=== PATIENT | male | born 1975 | race Hispanic/Latino ===

== ENCOUNTER 2019-05-09 09:20 | Observation (INO) | payer SELFPAY ==
[2019-05-09] VITALS: BP 112/73
[~2019-05-09] VITALS: Ht 175.3 cm; Wt 70.3 kg
[2019-05-09] MEDS ORDERED: ASPIRIN 81 MG CHEW TAB PO ONE ×2 (10:15→12:45)
[2019-05-09 10:57] LABS: BASOPHILS % 0.4 % (0.0-1.0); EOSINOPHILS % 0.3 % (0.0-6.0); HEMATOCRIT 43.3 % (38.2-49.6); HEMOGLOBIN 15.6 g/dL (14.0-18.0); LYMPHOCYTES # (AUTO) 1.6 (1.0-3.2); LYMPHOCYTES % 20.7 % (18.0-39.1); MEAN CORPUSCULAR HEMOGLOBIN 30.5 pg (28-32); MEAN CORPUSCULAR VOLUME 84.6 fL (81-99); MONOCYTES # (AUTO) 0.6 (0.2-0.8); MONOCYTES % 7.5 % (4.4-11.3); NEUTROPHILS # (AUTO) 5.3 (2.1-6.9); NEUTROPHILS % 70.8 % (38.7-80.0); PLATELET COUNT 245 x10e3/uL (140-360); RED BLOOD COUNT 5.12 x10e6/uL (4.3-5.7); RED CELL DISTRIBUTION WIDTH 11.7 % (11.7-14.4)
[2019-05-09 11:15] LABS: ANION GAP 16.3 mmol/L (8-16); BLOOD UREA NITROGEN 16 mg/dL (7-26); BUN/CREATININE RATIO 16 (6-25); CALCIUM 9.6 mg/dL (8.4-10.2); CARBON DIOXIDE 20 mmol/L (22-29); CHLORIDE 104 mmol/L (98-107); CREATININE, SERUM 0.99 mg/dL (0.72-1.25); EST GLOMERULAR FILTRATION RATE > 60 ML/MIN (60-); GLUCOSE 110 mg/dL (74-118); POTASSIUM 4.3 mmol/L (3.5-5.1); SODIUM 136 mmol/L (136-145)
[2019-05-09 11:47] LABS: CREATINE KINASE 100 IU/L (30-200)
[2019-05-09 11:53] LABS: CREATINE KINASE MB < 1.00 ng/mL (0-4.3)
--- NOTE | 2019-05-09 11:54 | Diagnostic Imaging Report ---
EXAMINATION: CHEST 2 VIEWS INDICATION: Chest pain COMPARISON: None FINDINGS: LINES/TUBES:None LUNGS:The lungs are well-inflated. No focal consolidation or pulmonary edema. PLEURA:No pleural effusion or pneumothorax. MEDIASTINUM:The cardiomediastinal silhouette appears normal in size and shape. BONES/SOFT TISSUES:No acute osseous injury. ABDOMEN:No free air under the diaphragm. IMPRESSION: No focal pneumonia or pulmonary edema. Signed by: Issa Ron MD on 05/09/2019 11:51 AM
[2019-05-09] MEDS ORDERED: METOPROLOL TARTRATE 25 MG TAB PO SCH ×2 (12:45→21:00)
[2019-05-09 13:12] VITALS: BP 130/82
[2019-05-09 13:15] VITALS: BP 130/82
--- NOTE | 2019-05-09 13:15 | NUR ---
Pt received from ER via stretcher. Alert and oriented x4, on Tele box #19 (SR). Oriented to staff and surroundings. Encouraged to press call brock if help needed. Pt verbalized understanding of teaching. Will monitor
--- OUTSIDE RECORDS SUMMARY | 2019-05-09 14:08 | XMS REPORT ---
[facility] Address Unknown Phone Unavailable Care Team Providers Care Base Filler Operator Name Role Phone HAKEEM RENO Unavailable Unavailable Problems This patient has no known problems. Allergies, Adverse Reactions, Alerts This patient has no known allergies or adverse reactions. Medications This patient has no known medications. Results Test Description Test Time Test Comments Text Results Atomic Results Result Comments CHEST 2 VIEWS 2019-05-09 11:50:00 [facility] [address] [address] Patient Name: RICO CRESPO MR #: [id number] : 1975 Age/Sex: 43/M Req #: [id number] [facility] Physician: Ordered by: HAEKEM RENO MD Report #: [id number] Location: ER Room/Bed: Procedure: [id number] DX/CHEST 2 VIEWS Exam Date: 05/09/19 Exam Time: 1110 REPORT STATUS: Signed EXAMINATION: CHEST 2 VIEWS INDICATION: Chest pain COMPARISON: None FINDINGS: LINES/TUBES:None LUNGS:The lungs are well-inflated. No focal consolidation or pulmonary edema. PLEURA:No pleural effusion or pneumothorax. MEDIASTINUM:The cardiomediastinal silhouette appears normal in size and shape. BONES/SOFT TISSUES:No acute osseous injury. ABDOMEN:No free air under the diaphragm. IMPRESSION: No focal pneumonia or pulmonary edema. Signed by: Abdon Birmingham MD on 05/09/2019 11:51 AM Dictated By: ABDON BIRMINGHAM MD 1151 Transcribed By: GILLIAN Jacobo on 05/09/19 1151 COPY TO: HAKEEM RENO MD
[2019-05-09 16:01] VITALS: BP 121/70
--- NOTE | 2019-05-09 18:20 | Consultation ---
DATE OF CONSULTATION: 05/09/2019 Cardiology Consultation REQUESTING PHYSICIAN: Simon Adams MD REASON FOR CONSULTATION: Chest pain. HISTORY OF PRESENT ILLNESS: This is a 43-year-old male without significant past medical history who presents with chest pressure. He states this has been ongoing for the last 4-5 days, and is associated with palpitations and nausea. He denies any shortness of breath or diaphoresis. The pain does not radiate and lasts 10-15 minutes at a time. He notes the chest pain is worse when he lays down. The chest pain was worse when he woke up this morning and so he presented to the ER for further evaluation. He denies any edema orthopnea or PND. REVIEW OF SYSTEMS: Negative except as per HPI. PAST MEDICAL HISTORY: Denies. PAST SURGICAL HISTORY: None. ALLERGIES: PLEASE SEE EMR. MEDICATIONS: Please see medication list. SOCIAL HISTORY: He denies tobacco, alcohol, or illicit drugs. He is in the [employer]. FAMILY HISTORY: Reports a cousin with what he describes as a cardiomyopathy. PHYSICAL EXAMINATION: VITAL SIGNS: Temperature 98.5 degrees, pulse 73, respiratory rate 16, blood pressure 124/82, and oxygen saturation 100% on room air. GENERAL: Well-developed, well-nourished man, in no acute distress. HEENT: Normocephalic, atraumatic. Pupils equal. No scleral icterus. NECK: Supple. No thyromegaly or cervical lymphadenopathy. No carotid bruits. LUNGS: Clear to auscultation bilaterally. No wheezes or crackles. CARDIOVASCULAR: Normal rate. Regular rhythm. Normal S1 and S2. ABDOMEN: Soft and nontender. EXTREMITIES: No edema. NEURO: Nonfocal exam. LABORATORY DATA: Sodium 136, potassium 4.3, chloride 104, CO2 of 20, BUN 16, and creatinine 0.99. Troponin less than 0.05. Chest x-ray, no focal pneumonia or pulmonary edema. IMPRESSION: Chest pain. RECOMMENDATIONS: Obtain echocardiogram. Trend cardiac markers to rule out myocardial infarction. Monitor the patient closely on telemetry. Further recommendations pending test results. Thank you for this consult. We will continue to follow. Corrie Duran MD ABS/MODL /[id number] MTDD
[2019-05-09 19:04] LABS: CREATINE KINASE MB 0.6 ng/mL (0-5.0)
--- NOTE | 2019-05-09 19:05 | NUR ---
received report from day nurse. patient is resting comfortably in the bed. bed is in lowest position and call brock is within reach. will continue to monitor patient.
[2019-05-09 20:00] VITALS: BP 123/81
[2019-05-10 04:00] VITALS: BP 112/71
--- NOTE | 2019-05-10 06:49 | NUR ---
report given to day nurse. patient is resting comfortably in bed. bed is in lowest position and call brock is within reach.
[2019-05-10 06:58] LABS: CREATINE KINASE MB 0.5 ng/mL (0-5.0)
--- NOTE | 2019-05-10 07:00 | NUR ---
Pt received resting in bed with female friend. Alert and oriented x4. Oriented to staff and surroundings. Encouraged to press call brock if help needed. Call brock within reach. Will monitor
[2019-05-10 07:30] VITALS: BP 112/71
--- NOTE | 2019-05-10 07:30 | NUR ---
Pt c/o left chest "discomfort & pressure". BP 114/66 p 71. EKG done stat. Cardiac enzymes ordered. Dr. Daniel Calvo called. Awaiting call back. Pt is resting in bed with female friend. Will monitor
[2019-05-10 07:42] VITALS: BP 114/66
[2019-05-10 07:59] LABS: CREATINE KINASE MB 0.5 ng/mL (0-5.0)
--- NOTE | 2019-05-10 09:15 | NUR ---
Cardiac enzymes negative. EKG WNL. No special order given by Dr. Daniel Calvo. Will monitor
[2019-05-10 11:24] VITALS: BP 113/68
[2019-05-10] MEDS ORDERED: ACETAMINOPHEN 325 MG TAB PO PRN (13:30)
[2019-05-10 15:52] VITALS: BP 115/62
[2019-05-10] MEDS ORDERED: NITROGLYCERIN0.4 MG SL (17:34)
--- NOTE | 2019-05-10 18:02 | NUR ---
Pt given discharge instructions regarding meds, diet, activities, s/s to report, and follow up appointments with doctor. Pt verbalized understanding of teaching. Pt refused wheelchair. Escorted to car.
--- NOTE | 2019-05-10 20:10 | Progress Note ---
DATE: 05/10/2019 Cardiology Progress Note SUBJECTIVE: Still had some episodes of chest pressure at rest, currently asymptomatic. OBJECTIVE: VITAL SIGNS: Temperature afebrile, pulse 65, respiratory rate 18, blood pressure 115/62, saturating 98% on room air. GENERAL: Well developed, well nourished, no acute distress. CARDIOVASCULAR: Regular rate and rhythm. No murmurs, rubs, or gallops. LUNGS: Clear to auscultation bilaterally. ABDOMEN: Soft, nontender, nondistended. NEURO AND PSYCH: Alert and oriented to person, place, and time. Normal affect. INPATIENT MEDICATIONS: Reviewed. LABORATORY DATA: Reviewed. The patient has been ruled out for acute MD with serial troponins. IMAGING DATA: Reviewed. Chest x-ray is normal. TELEMETRY DATA: Reviewed, shows normal sinus rhythm. Echocardiogram reviewed, essentially normal. ASSESSMENT AND PLAN: Chest pain. PLAN: The patient has been ruled out for acute MD. Chest pain is atypical. The patient has no exertional symptoms, could be from esophageal spasm or coronary spasm given his age. Prescribed him p.r.n. nitroglycerin to see if this helps with episodes of chest pressure. He will follow up with Dr. Corrie Duran 2 weeks post discharge for further evaluation. Thank you for this consult. The patient is okay to discharge home. MD NILAY French/SEEMA /[id number]
--- NOTE | 2019-05-12 10:24 | Discharge Summary ---
DISCHARGE DIAGNOSIS: Chest pain, rule out myocardial infarction. HISTORY OF PRESENT ILLNESS: The patient is a young gentleman, who presented with some atypical chest pain over the last a month or so, where he was midsternal, not really radiating anywhere, so he brought in. He ruled out for KS with EKGs and enzymes. He was seen by Cardiology, who said the patient was cleared for discharge and we will follow up with him in about two weeks, which the patient was happy with, so he was then discharged home in good condition. Please see hospital chart for full details. MD ROSE Bates/SEEMA /[id number]
== END 2019-05-10 18:00 | disposition home or self-care (01) ==
LOC: ER 09:20 → ERHOLD 14:05 → IMCU 14:08
PROVIDERS: ADMIT Internal Medicine; ATTEND Internal Medicine
DX: R07.89 Other chest pain (principal)
CPT/HCPCS: 36415; 71046; 80048; 82550; 82553; 84484; 85025; 85379; 86140; 93005; 93306; 99284; G0378